=== PATIENT | female | born 1970 | race Caucasian/White ===

== ENCOUNTER → 2017-05-27 13:55 | Outpatient (CLI) | payer BC | END | disposition home or self-care (01) | LOC: D.CT 13:30 | DX: R51 Headache (principal); S09.90XA Unspecified injury of head, initial encounter ==

== ENCOUNTER → 2017-09-27 09:00 | Outpatient (CLI) | payer BC | END | disposition home or self-care (01) | LOC: D.MAMMO 09-13 08:15 | DX: Z12.31 Encounter for screening mammogram for malignant neoplasm of breast (principal) ==